=== PATIENT | male | born 1985 | race Caucasian/White ===

== ENCOUNTER 2022-07-18 15:03 | Outpatient (CLI) | payer BC, SELFPAY ==
[2022-07-18 17:42] LABS: Chloride* 105 mmol/L (96-114); Potassium* 4.3 mmol/L (3.6-5.1); Sodium* 142 mmol/L (135-149)
[2022-07-18 17:45] LABS: Blood Urea Nitrogen* 12 mg/dL (5-24); Carbon Dioxide* 29 mmol/L (20-32); Cholesterol* 199 mg/dL (90-199); Creatinine* 0.8 mg/dL (0.5-1.5); Estimated Glomerular Filt Rate 118 ml/min; Glucose* 98 mg/dL (60-115); Triglycerides* 391 mg/dL (40-149)
[2022-07-18 17:46] LABS: Calcium* 9.4 mg/dL (8.4-10.6); HDL Cholesterol* 33 mg/dL (>=40); LDL Cholesterol Calculated 88 mg/dL (<100)
== END 2022-07-18 15:04 | disposition home or self-care (01) ==
PROVIDERS: PCP Family Medicine; Visit Provider Family Medicine
DX: I10 Essential (primary) hypertension (principal); Z13.6 Encounter for screening for cardiovascular disorders
CPT/HCPCS: 80048; 80061